=== PATIENT | female | born 1995 | race Caucasian/White ===

== ENCOUNTER → 2018-01-03 | Outpatient (CLI) | payer BC ==
--- NOTE | 2018-01-03 19:49 | RAD ---
Ultrasound pelvis, transvaginal ultrasound 01/03/2018 Clinical indication: Lower pelvic pain for one and half weeks. Irregular periods. COMPARISON: None. FINDINGS: Transabdominal and endovaginal images were performed. Uterus measures 7.1 x 4.0 x 2.8 cm. Endometrium is normal thickness for age measuring 0.9 cm. Left ovary measures 4.9 x 2.7 x 4.2 cm with normal color Doppler imaging. There is a left ovarian cyst with mild internal debris and a single thin internal septation measuring 2.8 x 2.4 x 1.9 cm. Right ovary measures 3.6 x 1.9 x 3.3 cm with physiologic follicles. There is trace pelvic free fluid with internal debris. IMPRESSION: 1. No evidence of ovarian torsion. 2. Left ovarian cyst with internal debris and a single thin internal septation with no nodularity measuring up to 2.8 cm. Finding may represent a hemorrhagic cyst, however follow-up transvaginal ultrasound in 6 weeks is recommended to assess for resolution. 3. Trace pelvic free fluid, with suggestion of internal debris, may be physiologic or due to a ruptured cyst. Electronically signed by: Yoni Roman MD (01/03/2018 7:47 PM) [facility]
== END | disposition home or self-care (01) ==
LOC: US 16:52
PROVIDERS: ATTEND Physician Assistant
DX: N83.202 Unspecified ovarian cyst, left side (principal); N92.0 Excessive and frequent menstruation with regular cycle; R10.2 Pelvic and perineal pain
CPT/HCPCS: 76830; 76856

== ENCOUNTER 2018-06-21 17:47 | Emergency (ER) | payer BC ==
[~2018-06-21] VITALS: Ht 165.1 cm; Wt 106.0 kg
[2018-06-21 17:57] VITALS: BP 125/78
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
[2018-06-21] MEDS ORDERED: KETOROLAC 60 MG/2 ML VIAL. IM ONE (18:45)
[2018-06-21] MEDS ORDERED: PROMETHAZINE 25 MG TABLET. PO ONE (18:45)
[2018-06-21 18:56] LABS: BACTERIA,URINE 0 /HPF (0-FEW); BILIRUBIN,URINE NEG (NEG); CLARITY,URINE CLOUDY; COLOR,URINE YELLOW; GLUCOSE,URINE NEG (NEG); NITRITE,URINE NEG (NEG); RBC,URINE RARE /HPF (0-2); SQUAMOUS EPITHELIAL CELL,UR FEW /LPF; UROBILINOGEN,URINE 0.2 mg/dL (0.2 mg/dL); WBC,URINE RARE /HPF (0-4)
[2018-06-21 18:57] LABS: AMORPHOUS SEDIMENT,UR PRESENT /HPF; U PREG PATIENT NEGATIVE (NEG)
[2018-06-21] MEDS ORDERED: BUTA1CAP31 PO (19:41)
== END 2018-06-21 19:50 | disposition home or self-care (01) ==
LOC: ER 17:47
DX: R51 Headache (principal); R68.83 Chills (without fever); R53.1 Weakness
CPT/HCPCS: 81001; 81025; 96372; 99284; J1885; Q0169